=== PATIENT | female | born 2005 | race Caucasian/White ===

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

== ENCOUNTER 2025-07-19 16:15 | Emergency (ER) | payer SELFPAY ==
[~2025-07-19] VITALS: Ht 162.6 cm; Wt 68.0 kg
[2025-07-19 16:48] VITALS: O2SAT 99
[2025-07-19] MEDS: IBUPROFEN 400MG TABLET PO ONE (20:02)
[2025-07-19] MEDS ORDERED: IBUP-2028 MT (20:19)
[2025-07-19] MEDS ORDERED: TOPUD PO (20:19)
[2025-07-19 20:29] VITALS: BP 104/54; PULSE 55; RESP 15; TEMP 37; O2SAT 97
== END 2025-07-19 20:44 | disposition home or self-care (01) ==
LOC: ER 16:15
DX: S93.402A Sprain of unspecified ligament of left ankle, initial encounter (principal); Z90.49 Acquired absence of other specified parts of digestive tract; W01.0XXA Fall on same level from slipping, tripping and stumbling without subsequent striking against object, initial encounter; Y93.89 Activity, other specified; Y92.89 Other specified places as the place of occurrence of the external cause; Y99.8 Other external cause status
CPT/HCPCS: 73600; 99283; Z7610